=== PATIENT | male | born 1980 | race Two or more races ===

== ENCOUNTER 2017-12-20 16:30 | Emergency (ER) | payer MEDICAID ==
[~2017-12-20] VITALS: Ht 170.2 cm; Wt 77.1 kg
[2017-12-20 17:00] VITALS: BP 151/104
== END 2017-12-20 17:02 | disposition left against medical advice (07) ==
LOC: ER 16:30
DX: F10.120 Alcohol abuse with intoxication, uncomplicated (principal); F10.239 Alcohol dependence with withdrawal, unspecified; Z53.21 Procedure and treatment not carried out due to patient leaving prior to being seen by health care provider

== ENCOUNTER 2018-07-16 18:16 | Emergency (ER) | payer MEDICAID ==
[~2018-07-16] VITALS: Ht 172.7 cm; Wt 79.4 kg
[2018-07-16] MEDS ORDERED: SODIUM CHLORIDE 0.9% 1,000 ML IVB ONE (18:49)
[2018-07-16] MEDS ORDERED: LORazepam 2MG/ML-1ML VIAL IV ONE (19:00)
[2018-07-16 20:05] LABS: Basophils # (auto) 0.1 uL; Basophils % (auto) 0.8 % (0.0-2.0); Eosinophils # (auto) 0.2 uL; Eosinophils % (auto) 2.2 % (0.0-7.0); Hematocrit 46.2 % (41.0-53.0); Hemoglobin 15.5 g/dL (13.5-17.5); Lymphocytes # (auto) 2.6 uL; Mean Corpuscular Hemoglobin 29.7 pg (28.0-32.0); Mean Corpuscular Hgb Conc. 33.7 g/dL (32.0-36.0); Mean Corpuscular Volume 88.2 fL (80.0-100.0); Monocytes # (auto) 0.8 uL; Monocytes % (auto) 9.4 % (0.0-12.0); Neutrophils # (auto) 5.3 uL; Neutrophils % (auto) 58.6 % (37.0-80.0); Nucleated Red Blood Cells % 0.1 %; Platelet Count (auto) 274 10^3/uL (140-450); Red Blood Cells 5.24 10^6/uL (4.5-5.90); White Blood Cell 9.1 10^3/uL (4.4-10.8)
[2018-07-16 20:13] LABS: BUN/Creatinine Ratio 13.8; Calcium 8.8 mg/dL (8.5-10.1); Magnesium 2.3 mg/dL (1.6-2.6); Potassium 3.4 mmol/L (3.5-5.1)
[2018-07-16 20:20] LABS: Bilirubin, Total 0.3 mg/dL (0.2-1.0); Total Protein 8.1 g/dL (6.4-8.2)
[2018-07-16 21:06] LABS: Amphetamine Screen, Urine POSITIVE (NEGATIVE); Barbiturate Scree,Urine NEGATIVE (NEGATIVE); Benzodiazephine Screen, Urine POSITIVE (NEGATIVE); Cannabinoid Screen, Urine NEGATIVE (NEGATIVE); Cocaine Screen, Urine NEGATIVE (NEGATIVE); Opiate Scree,Urine NEGATIVE (NEGATIVE); Phencyclidine Screen, Urine NEGATIVE (NEGATIVE)
[2018-07-17 03:14] VITALS: BP 133/71
[2018-07-17] MEDS ORDERED: LORazepam 0.5 MG TAB PO ONE ×2 (05:00)
== END 2018-07-17 05:18 | disposition home or self-care (01) ==
LOC: EDBD 18:16 → ER 18:21
DX: F10.239 Alcohol dependence with withdrawal, unspecified (principal); Y90.7 Blood alcohol level of 200-239 mg/100 ml; F12.10 Cannabis abuse, uncomplicated; F15.10 Other stimulant abuse, uncomplicated; F11.10 Opioid abuse, uncomplicated; K21.9 Gastro-esophageal reflux disease without esophagitis; I10 Essential (primary) hypertension; Z59.0 Homelessness
CPT/HCPCS: 36415; 80053; 80307; 80320; 82962; 83735; 85025; 93005; 94761; 96374; 99285; J2060; J7030

== ENCOUNTER 2018-07-17 11:46 | Emergency (ER) | payer MEDICAID ==
[~2018-07-17] VITALS: Ht 170.2 cm; Wt 77.1 kg
[2018-07-17] MEDS ORDERED: SODIUM CHLORIDE 0.9% 1,000 ML IV ONE ×4 (12:01→17:00)
[2018-07-17] MEDS ORDERED: LORazepam 2MG/ML-1ML VIAL IV ONE (12:15)
[2018-07-17 13:05] LABS: Basophils # (auto) 0.1 uL; Basophils % (auto) 1.1 % (0.0-2.0); Eosinophils # (auto) 0.2 uL; Eosinophils % (auto) 3.5 % (0.0-7.0); Hematocrit 41.8 % (41.0-53.0); Hemoglobin 14.5 g/dL (13.5-17.5); Lymphocytes # (auto) 2.3 uL; Mean Corpuscular Hemoglobin 30.6 pg (28.0-32.0); Mean Corpuscular Hgb Conc. 34.7 g/dL (32.0-36.0); Mean Corpuscular Volume 88.2 fL (80.0-100.0); Monocytes # (auto) 0.5 uL; Neutrophils # (auto) 3.4 uL; Neutrophils % (auto) 51.4 % (37.0-80.0); Nucleated Red Blood Cells % 0.2 %; Platelet Count (auto) 265 10^3/uL (140-450); Red Blood Cells 4.74 10^6/uL (4.5-5.90); Red Cell Distribution Width 14.7 % (11.8-14.3); White Blood Cell 6.5 10^3/uL (4.4-10.8)
[2018-07-17 13:19] LABS: Albumin 3.5 g/dL (3.4-5.0); BUN/Creatinine Ratio 17.3; Calcium 8.1 mg/dL (8.5-10.1); Potassium 3.6 mmol/L (3.5-5.1)
[2018-07-17 13:42] LABS: Bilirubin, Total 0.2 mg/dL (0.2-1.0); Total Protein 7.4 g/dL (6.4-8.2)
[2018-07-17 16:36] LABS: Amphetamine Screen, Urine POSITIVE (NEGATIVE); Barbiturate Scree,Urine NEGATIVE (NEGATIVE); Benzodiazephine Screen, Urine POSITIVE (NEGATIVE); Cannabinoid Screen, Urine NEGATIVE (NEGATIVE); Cocaine Screen, Urine NEGATIVE (NEGATIVE); Opiate Scree,Urine NEGATIVE (NEGATIVE); Phencyclidine Screen, Urine NEGATIVE (NEGATIVE)
[2018-07-17] MEDS ORDERED: THIAMINE 100mg/ml INJ (200mg/2ml VIAL) IV ONE (17:00)
[2018-07-17] MEDS ORDERED: SODIUM CHLORIDE 0.9% 2,000 ML IV ONE (21:45)
[2018-07-18 01:21] VITALS: BP 138/94
== END 2018-07-18 01:26 | disposition home or self-care (01) ==
LOC: ER 11:46
DX: F10.129 Alcohol abuse with intoxication, unspecified (principal); F15.10 Other stimulant abuse, uncomplicated; F11.10 Opioid abuse, uncomplicated; F12.10 Cannabis abuse, uncomplicated; K21.9 Gastro-esophageal reflux disease without esophagitis; I10 Essential (primary) hypertension; Z59.0 Homelessness; Y90.8 Blood alcohol level of 240 mg/100 ml or more
CPT/HCPCS: 36415; 80053; 80307; 80320; 85025; 94761; 96374; 99285; J2060; J3411; J7030

== ENCOUNTER 2018-07-18 11:43 | Observation (INO) | payer MEDICAID ==
[~2018-07-18] VITALS: Ht 177.8 cm; Wt 99.8 kg
[2018-07-18] MEDS ORDERED: SODIUM CHLORIDE 0.9% 1,000 ML IVB ONE (12:05)
[2018-07-18] MEDS ORDERED: SODIUM CHLORIDE 0.9% 1,000 ML IV ONE (12:15)
[2018-07-18 13:11] LABS: Amphetamine Screen, Urine NEGATIVE (NEGATIVE); Barbiturate Scree,Urine NEGATIVE (NEGATIVE); Benzodiazephine Screen, Urine POSITIVE (NEGATIVE); Cannabinoid Screen, Urine NEGATIVE (NEGATIVE); Cocaine Screen, Urine NEGATIVE (NEGATIVE); Opiate Scree,Urine NEGATIVE (NEGATIVE); Phencyclidine Screen, Urine NEGATIVE (NEGATIVE)
[2018-07-18 13:30] LABS: Basophils # (auto) 0.1 uL; Basophils % (auto) 1.8 % (0.0-2.0); Eosinophils # (auto) 0.2 uL; Eosinophils % (auto) 4.7 % (0.0-7.0); Hemoglobin 13.5 g/dL (13.5-17.5); Lymphocytes # (auto) 1.6 uL; Lymphocytes % (auto) 37.9 % (10.0-50.0); Mean Corpuscular Hemoglobin 29.8 pg (28.0-32.0); Mean Corpuscular Hgb Conc. 33.8 g/dL (32.0-36.0); Monocytes # (auto) 0.3 uL; Monocytes % (auto) 6.7 % (0.0-12.0); Neutrophils # (auto) 2.1 uL; Neutrophils % (auto) 48.9 % (37.0-80.0); Nucleated Red Blood Cells % 0.1 %; Platelet Count (auto) 224 10^3/uL (140-450); Red Blood Cells 4.55 10^6/uL (4.5-5.90); Red Cell Distribution Width 14.5 % (11.8-14.3); White Blood Cell 4.3 10^3/uL (4.4-10.8)
[2018-07-18 14:08] LABS: Albumin 3.3 g/dL (3.4-5.0); BUN/Creatinine Ratio 9.5; Bilirubin, Total 0.2 mg/dL (0.2-1.0); Calcium 7.3 mg/dL (8.5-10.1); Magnesium 2.3 mg/dL (1.6-2.6); Potassium 3.5 mmol/L (3.5-5.1); Total Protein 6.8 g/dL (6.4-8.2)
[2018-07-18] MEDS ORDERED: THIAMINE INJ 100 MG, MULTIPLE VITAMIN 10 ML, FOLIC ACID 1 MG, MAGNESIUM SULF SDV 50% 8 ... IV ONE ×5 (14:15)
[2018-07-18 20:10] LABS: Urine Bacteria FEW /hpf (None Seen); Urine Blood Negative /uL (Negative); Urine Specific Gravity 1.007 (1.001-1.035); Urine WBC 1 /hpf (0 - 3)
[2018-07-18 21:54] VITALS: BP 161/107
== END 2018-07-18 23:16 | disposition home or self-care (01) | DRG 773 ==
LOC: ER 11:43 → EDBD 11:43 → OVERFLOW 11:44 → ER 23:16
PROVIDERS: ADMIT Family Medicine; ATTEND Family Medicine
DX: F10.129 Alcohol abuse with intoxication, unspecified (principal); I10 Essential (primary) hypertension; G40.909 Epilepsy, unspecified, not intractable, without status epilepticus; R79.89 Other specified abnormal findings of blood chemistry; K21.9 Gastro-esophageal reflux disease without esophagitis; F17.210 Nicotine dependence, cigarettes, uncomplicated; F12.11 Cannabis abuse, in remission; F11.10 Opioid abuse, uncomplicated; F15.10 Other stimulant abuse, uncomplicated; Z59.0 Homelessness
CPT/HCPCS: 36415; 70450; 71045; 80053; 80307; 80320; 81001; 82962; 83735; 85025; 96365; 96366; 99285; G0378; J3411; J3475; J7030

== ENCOUNTER 2018-07-19 11:29 | Emergency (ER) | payer MEDICAID ==
[~2018-07-19] VITALS: Ht 177.8 cm; Wt 90.7 kg
[2018-07-19] MEDS ORDERED: SODIUM CHLORIDE 0.9% 1,000 ML IVB ONE (11:35)
[2018-07-19 13:34] LABS: Basophils # (auto) 0.1 uL; Basophils % (auto) 1.3 % (0.0-2.0); Eosinophils # (auto) 0.2 uL; Hematocrit 41.2 % (41.0-53.0); Hemoglobin 13.7 g/dL (13.5-17.5); Lymphocytes # (auto) 2.1 uL; Lymphocytes % (auto) 44.4 % (10.0-50.0); Mean Corpuscular Hemoglobin 29.5 pg (28.0-32.0); Mean Corpuscular Hgb Conc. 33.4 g/dL (32.0-36.0); Mean Corpuscular Volume 88.4 fL (80.0-100.0); Monocytes # (auto) 0.3 uL; Monocytes % (auto) 6.9 % (0.0-12.0); Neutrophils % (auto) 42.4 % (37.0-80.0); Nucleated Red Blood Cells % 0.1 %; Platelet Count (auto) 258 10^3/uL (140-450); Red Blood Cells 4.66 10^6/uL (4.5-5.90); White Blood Cell 4.7 10^3/uL (4.4-10.8)
[2018-07-19 14:03] LABS: Albumin 3.3 g/dL (3.4-5.0); BUN/Creatinine Ratio 7.4; Bilirubin, Total 0.1 mg/dL (0.2-1.0); Calcium 7.7 mg/dL (8.5-10.1); Potassium 3.7 mmol/L (3.5-5.1); Total Protein 6.9 g/dL (6.4-8.2)
[2018-07-19 15:12] VITALS: BP 151/89
== END 2018-07-19 18:33 | disposition left against medical advice (07) ==
LOC: EDBD 11:29 → ER 11:29
DX: F10.129 Alcohol abuse with intoxication, unspecified (principal); E87.8 Other disorders of electrolyte and fluid balance, not elsewhere classified; E83.51 Hypocalcemia; F11.10 Opioid abuse, uncomplicated; F12.10 Cannabis abuse, uncomplicated; F15.10 Other stimulant abuse, uncomplicated; F17.210 Nicotine dependence, cigarettes, uncomplicated; R41.82 Altered mental status, unspecified; Y90.8 Blood alcohol level of 240 mg/100 ml or more
CPT/HCPCS: 36415; 80053; 80320; 85025; 94761; 96360; 99284; J7030

== ENCOUNTER 2018-07-19 18:18 | Emergency (ER) | payer MEDICAID ==
[~2018-07-19] VITALS: Ht 170.2 cm; Wt 79.4 kg
[2018-07-19] MEDS ORDERED: SODIUM CHLORIDE 0.9% 1,000 ML IVB ONE (18:26)
[2018-07-19 23:40] VITALS: BP 154/90
== END 2018-07-19 23:50 | disposition home or self-care (01) ==
LOC: EDBD 18:18 → ER 18:21
DX: F10.129 Alcohol abuse with intoxication, unspecified (principal); F15.10 Other stimulant abuse, uncomplicated; F11.10 Opioid abuse, uncomplicated; F12.10 Cannabis abuse, uncomplicated; F17.210 Nicotine dependence, cigarettes, uncomplicated; K21.9 Gastro-esophageal reflux disease without esophagitis; I10 Essential (primary) hypertension; Y90.9 Presence of alcohol in blood, level not specified
CPT/HCPCS: 36415; 80320; 94761

== ENCOUNTER 2018-07-20 14:45 | Emergency (ER) | payer MEDICAID ==
[~2018-07-20] VITALS: Ht 182.9 cm; Wt 99.8 kg
[2018-07-20 15:00] VITALS: BP 134/78
[2018-07-20] MEDS ORDERED: SODIUM CHLORIDE 0.9% 1,000 ML IV ONE (15:02)
== END 2018-07-20 18:13 | disposition left against medical advice (07) ==
LOC: EDBD 14:45 → ER 14:47
DX: F10.129 Alcohol abuse with intoxication, unspecified (principal); K21.9 Gastro-esophageal reflux disease without esophagitis; I10 Essential (primary) hypertension; F17.210 Nicotine dependence, cigarettes, uncomplicated; F11.10 Opioid abuse, uncomplicated; F12.10 Cannabis abuse, uncomplicated; F15.10 Other stimulant abuse, uncomplicated; Z59.0 Homelessness; Y90.8 Blood alcohol level of 240 mg/100 ml or more
CPT/HCPCS: 36415; 80320; 94761

== ENCOUNTER 2018-09-13 03:10 | Emergency (ER) | payer MEDICAID ==
[~2018-09-13] VITALS: Ht 170.2 cm; Wt 90.7 kg
[2018-09-13 03:58] LABS: Basophils # (auto) 0.1 uL; Basophils % (auto) 1.9 % (0.0-2.0); Eosinophils # (auto) 0.1 uL; Eosinophils % (auto) 0.9 % (0.0-7.0); Hematocrit 46.4 % (41.0-53.0); Hemoglobin 15.4 g/dL (13.5-17.5); Lymphocytes % (auto) 33.7 % (10.0-50.0); Mean Corpuscular Hemoglobin 30.3 pg (28.0-32.0); Mean Corpuscular Hgb Conc. 33.2 g/dL (32.0-36.0); Monocytes # (auto) 0.5 uL; Monocytes % (auto) 8.7 % (0.0-12.0); Neutrophils # (auto) 3.3 uL; Neutrophils % (auto) 54.8 % (37.0-80.0); Platelet Count (auto) 296 10^3/uL (140-450); Red Cell Distribution Width 15.8 % (11.8-14.3)
[2018-09-13 04:15] LABS: Alanine Aminotransferase 36 U/L (16-61); Albumin 3.7 g/dL (3.4-5.0); Anion Gap 10 (5-15); Blood Urea Nitrogen 11 mg/dL (7-18); Calcium 8.3 mg/dL (8.5-10.1); Carbon Dioxide 26 mmol/L (21-32); Chloride 102 mmol/L (98-107); Glucose 194 mg/dL (74-106); Potassium 3.4 mmol/L (3.5-5.1); Sodium 138 mmol/L (136-145)
[2018-09-13 04:20] LABS: Alkaline Phosphatase 107 U/L (45-117); Aspartate Aminotransferase 31 U/L (15-37); BUN/Creatinine Ratio 12.5; Bilirubin, Total 0.2 mg/dL (0.2-1.0); GFR African American 125 mL/min; GFR Non-African American 103 mL/min; Total Protein 8.1 g/dL (6.4-8.2)
[2018-09-13] MEDS ORDERED: LORazepam 2MG/ML-1ML VIAL IV ONE (04:30)
[2018-09-13 04:38] LABS: Amphetamine Screen, Urine POSITIVE (NEGATIVE); Barbiturate Scree,Urine NEGATIVE (NEGATIVE); Benzodiazephine Screen, Urine POSITIVE (NEGATIVE); Cannabinoid Screen, Urine NEGATIVE (NEGATIVE); Cocaine Screen, Urine NEGATIVE (NEGATIVE); Opiate Scree,Urine NEGATIVE (NEGATIVE); Phencyclidine Screen, Urine NEGATIVE (NEGATIVE)
[2018-09-13 06:12] VITALS: BP 171/100
[2018-09-13] MEDS ORDERED: SODIUM CHLORIDE 0.9% 1,000 ML IV ONE (06:45)
[2018-09-13] MEDS ORDERED: THIAMINE INJ 100 MG, MULTIPLE VITAMIN 10 ML, FOLIC ACID 1 MG, MAGNESIUM SULF SDV 50% 8 ... IV SCH ×5 (10:00)
== END 2018-09-13 06:46 | disposition left against medical advice (07) ==
LOC: EDBD 03:10 → ER 03:10
DX: R07.89 Other chest pain (principal); Z53.21 Procedure and treatment not carried out due to patient leaving prior to being seen by health care provider
CPT/HCPCS: 36415; 80053; 80307; 80320; 83735; 84484; 85025; 93005; J7030

== ENCOUNTER 2018-09-13 17:09 | Emergency (ER) | payer MEDICAID ==
[~2018-09-13] VITALS: Ht 170.2 cm; Wt 81.6 kg
[2018-09-13] MEDS ORDERED: SODIUM CHLORIDE 0.9% 1,000 ML IV ONE (17:40)
[2018-09-13] MEDS ORDERED: LORazepam 2MG/ML-1ML VIAL IV ONE (17:45)
[2018-09-14 01:35] VITALS: BP 145/81
== END 2018-09-14 02:35 | disposition home or self-care (01) ==
LOC: EDUNIT# 17:09 → EDBD 17:09 → ER 17:13
DX: G92 Toxic encephalopathy (principal); F10.129 Alcohol abuse with intoxication, unspecified; K21.9 Gastro-esophageal reflux disease without esophagitis; I10 Essential (primary) hypertension; F17.210 Nicotine dependence, cigarettes, uncomplicated; F15.90 Other stimulant use, unspecified, uncomplicated; F12.90 Cannabis use, unspecified, uncomplicated; Z59.0 Homelessness; Z90.49 Acquired absence of other specified parts of digestive tract
CPT/HCPCS: 36415; 80320; 93005; 94761; 96374; 99285; J2060

== ENCOUNTER 2018-09-14 13:56 | Emergency (ER) | payer MEDICAID ==
[~2018-09-14] VITALS: Ht 175.3 cm; Wt 99.8 kg
[2018-09-14] MEDS ORDERED: THIAMINE INJ 100 MG, MULTIPLE VITAMIN 10 ML, FOLIC ACID 1 MG, MAGNESIUM SULF SDV 50% 8 ... IV ONE ×5 (14:30)
[2018-09-14 14:49] LABS: Basophils # (auto) 0.1 uL; Basophils % (auto) 0.7 % (0.0-2.0); Eosinophils # (auto) 0.1 uL; Eosinophils % (auto) 0.9 % (0.0-7.0); Hematocrit 45.4 % (41.0-53.0); Hemoglobin 15.1 g/dL (13.5-17.5); Lymphocytes % (auto) 27.8 % (10.0-50.0); Mean Corpuscular Hemoglobin 30.1 pg (28.0-32.0); Mean Corpuscular Hgb Conc. 33.3 g/dL (32.0-36.0); Mean Corpuscular Volume 90.4 fL (80.0-100.0); Monocytes # (auto) 0.5 uL; Monocytes % (auto) 7.1 % (0.0-12.0); Neutrophils # (auto) 4.7 uL; Neutrophils % (auto) 63.5 % (37.0-80.0); Platelet Count (auto) 358 10^3/uL (140-450); Red Blood Cells 5.02 10^6/uL (4.5-5.90); Red Cell Distribution Width 15.5 % (11.8-14.3); White Blood Cell 7.4 10^3/uL (4.4-10.8)
[2018-09-14 15:07] LABS: Albumin 3.7 g/dL (3.4-5.0); Calcium 8.7 mg/dL (8.5-10.1); Potassium 3.4 mmol/L (3.5-5.1)
[2018-09-14 15:19] LABS: BUN/Creatinine Ratio 7.5; Bilirubin, Total 0.2 mg/dL (0.2-1.0); Total Protein 8.2 g/dL (6.4-8.2)
[2018-09-14] MEDS ORDERED: SODIUM CHLORIDE 0.9% 1,000 ML IV ONE (17:32)
[2018-09-14 17:59] VITALS: BP 160/99
[2018-09-14] MEDS ORDERED: POTASSIUM EFFERVESENT TAB 25 MEQ PO ONE (18:45)
== END 2018-09-15 09:34 | disposition home or self-care (01) ==
LOC: EDBD 13:56 → ER 14:01
DX: F10.129 Alcohol abuse with intoxication, unspecified (principal); F15.10 Other stimulant abuse, uncomplicated; K21.9 Gastro-esophageal reflux disease without esophagitis; I10 Essential (primary) hypertension; F17.210 Nicotine dependence, cigarettes, uncomplicated; F12.90 Cannabis use, unspecified, uncomplicated; Z90.49 Acquired absence of other specified parts of digestive tract; Z59.0 Homelessness
CPT/HCPCS: 36415; 80053; 80320; 85025; 94761; 96365; 96366; 99285; J3411; J3475; J7030

== ENCOUNTER 2018-09-17 09:13 | Emergency (ER) | payer MEDICAID ==
[~2018-09-17] VITALS: Ht 172.7 cm; Wt 79.4 kg
[2018-09-17] MEDS ORDERED: SODIUM CHLORIDE 0.9% 1,000 ML IV ONE ×3 (09:32→11:02)
[2018-09-17] MEDS ORDERED: THIAMINE 100mg/ml INJ (200mg/2ml VIAL) IV ONE (09:45)
[2018-09-17 10:40] LABS: Amphetamine Screen, Urine NEGATIVE (NEGATIVE); Barbiturate Scree,Urine NEGATIVE (NEGATIVE); Benzodiazephine Screen, Urine POSITIVE (NEGATIVE); Cannabinoid Screen, Urine NEGATIVE (NEGATIVE); Cocaine Screen, Urine NEGATIVE (NEGATIVE); Opiate Scree,Urine NEGATIVE (NEGATIVE); Phencyclidine Screen, Urine NEGATIVE (NEGATIVE)
[2018-09-17 13:30] VITALS: BP 172/98
== END 2018-09-17 14:15 | disposition home or self-care (01) ==
LOC: ER 09:13 → EDBD 09:13 → ER 14:15
DX: F10.129 Alcohol abuse with intoxication, unspecified (principal); K21.9 Gastro-esophageal reflux disease without esophagitis; I10 Essential (primary) hypertension; F17.210 Nicotine dependence, cigarettes, uncomplicated; F12.10 Cannabis abuse, uncomplicated; F15.10 Other stimulant abuse, uncomplicated; F11.10 Opioid abuse, uncomplicated; Z59.0 Homelessness
CPT/HCPCS: 80307; 96374; 99285; J3411; J7030

== ENCOUNTER 2018-09-17 17:14 | Emergency (ER) | payer MEDICAID ==
[~2018-09-17] VITALS: Ht 177.8 cm; Wt 81.6 kg
[2018-09-17 17:25] VITALS: BP 148/80
[2018-09-17] MEDS ORDERED: SODIUM CHLORIDE 0.9% 1,000 ML IVB ONE (17:51)
[2018-09-17] MEDS ORDERED: LORazepam 2MG/ML-1ML VIAL IV ONE (19:00)
[2018-09-17 20:06] LABS: Salicylate < 1.7 mg/dL (2.8-20.0)
[2018-09-17 20:12] LABS: Acetaminophen < 2.0 ug/mL (10-30)
[2018-09-18 02:05] LABS: Amphetamine Screen, Urine NEGATIVE (NEGATIVE); Barbiturate Scree,Urine NEGATIVE (NEGATIVE); Benzodiazephine Screen, Urine POSITIVE (NEGATIVE); Cannabinoid Screen, Urine NEGATIVE (NEGATIVE); Opiate Scree,Urine NEGATIVE (NEGATIVE); Phencyclidine Screen, Urine NEGATIVE (NEGATIVE)
[2018-09-18 02:14] LABS: Cocaine Screen, Urine NEGATIVE (NEGATIVE)
[2018-09-18] MEDS ORDERED: THIAMINE INJ 100 MG, MULTIPLE VITAMIN 10 ML, FOLIC ACID 1 MG, MAGNESIUM SULF SDV 50% 8 ... IV SCH ×5 (12:00)
== END 2018-09-18 07:23 | disposition left against medical advice (07) ==
LOC: EDBD 17:14 → EDUNIT# 17:14 → ER 17:14
DX: F10.129 Alcohol abuse with intoxication, unspecified (principal); R45.851 Suicidal ideations; F19.10 Other psychoactive substance abuse, uncomplicated; K21.9 Gastro-esophageal reflux disease without esophagitis; I10 Essential (primary) hypertension; F17.210 Nicotine dependence, cigarettes, uncomplicated; F15.90 Other stimulant use, unspecified, uncomplicated; Z59.0 Homelessness; Z90.49 Acquired absence of other specified parts of digestive tract
CPT/HCPCS: 36415; 80307; 80320; 80329; 94761; 96374; 99285; J2060; J7030